=== PATIENT | male | born 1975 | race Caucasian/White ===

== ENCOUNTER 2016-10-08 11:12 | Emergency (ER) | payer OTHER ==
[2016-10-08 11:25] VITALS: BP 134/92; PULSE 72; RESP 16; TEMP 98.4; O2SAT 97
--- NOTE | 2016-10-08 12:07 | EDPHY ---
H & P Stated Complaint: fall 5 ft off ladder at 0500/hit head l shoulder and both hands/denies loc/ Time Seen by Provider: 10/08/16 12:08 HPI/ROS: At 12:10 p.m. as I was entering his room the patient was exiting visibly upset stating that he was leaving, did not want to wait any longer. I have informed him that I was going to evaluate him at this time and offered and recommended to perform an evaluation however he insisted on leaving and therefore left without being seen. He was informed that he is more than welcome to return to the ER at any point for re-evaluation. - Personal History Current Tetanus/Diphtheria Vaccine: Yes - Medical/Surgical History Hx Asthma: No Hx Chronic Respiratory Disease: No Hx Diabetes: No Hx Cardiac Disease: No Hx Renal Disease: No Hx Cirrhosis: No Hx Alcoholism: No Hx HIV/AIDS: No Hx Splenectomy or Spleen Trauma: No Other PMH: denies - Social History Smoking Status: Former smoker Constitutional: Initial Vital Signs Temperature (C) 36.9 C 10/08/16 11:21 Heart Rate 72 10/08/16 11:21 Respiratory Rate 16 10/08/16 11:21 Blood Pressure 134/92 H 10/08/16 11:21 O2 Sat (%) 97 10/08/16 11:21 O2 Delivery Mode Room Air Allergies/Adverse Reactions: No Known Allergies Allergy (Verified 10/08/16 11:21) Home Medications: Medication Instructions Recorded NK [No Known Home Meds] 10/08/16 Departure - Departure Disposition: Left Without Being Seen
== END 2016-10-08 12:11 | disposition left against medical advice (07) ==
DX: Z53.21 Procedure and treatment not carried out due to patient leaving prior to being seen by health care provider (principal)

== ENCOUNTER 2016-10-08 12:25 | Emergency (ER) | payer OTHER ==
[2016-10-08 12:29] VITALS: BP 138/83; PULSE 70; RESP 18; TEMP 98.2; O2SAT 97
--- NOTE | 2016-10-08 12:39 | EDPHY ---
H & P Time Seen by Provider: 10/08/16 12:35 HPI/ROS: CHIEF COMPLAINT: Head injury HISTORY OF PRESENT ILLNESS: The patient is a 40 year old male presenting with head injury after falling from a ladder. The ladder folded up while the patient was standing on it, causing the patient to fall about 6 feet. He landed head first with his hands in front onto the concrete. He complains of moderate headache and some dizziness. He reports no neck pain. The patient also complains of pain in his left pinky finger and right wrist and hand pain from trying to catch himself. He denies any numbness in his extremities. REVIEW OF SYSTEMS: Aside from elements discussed in the HPI, a comprehensive 10-point review of systems was reviewed and is negative. Past Medical/Surgical History: Denies. Social History: Single. Lives in [place]. Smoking Status: Former smoker Physical Exam: General Appearance: Alert, no distress Head: 1cm superficial laceration above left eyebrow with surrounding ecchymosis Eyes: No conjunctival erythema, PERRLA, EOMI ENT, Mouth: No hemotympanum, no oral trauma, no bony tenderness Neck: Non-tender, full range of motion without pain Respiratory: No chest wall tenderness, lungs clear bilaterally Cardiovascular: Regular rate and rhythm Abdomen: Abdomen is soft and non tender Skin: No lacerations, no abrasions Back: No midline T/L/S tenderness Extremities: Snuff box tenderness right wrist, Tenderness of 4th digit over PIP on right hand. Tenderness over 5th digit at the DIP joint on left hand. Neurological: A&Ox3, normal motor function, normal sensory exam, cranial nerves intact Psychiatric: Mood and affect normal Constitutional: Initial Vital Signs Temperature (C) 36.8 C 10/08/16 12:26 Heart Rate 70 10/08/16 12:26 Respiratory Rate 18 10/08/16 12:26 Blood Pressure 138/83 H 10/08/16 12:26 O2 Sat (%) 97 10/08/16 12:26 O2 Delivery Mode Room Air Allergies/Adverse Reactions: No Known Allergies Allergy (Verified 10/08/16 12:25) Home Medications: Medication Instructions Recorded NK [No Known Home Meds] 10/08/16 Medical Decision Making - Diagnostics Imaging: Study: CT of the head. Indication: Trauma. Results: Negative. The study was read by the radiologist, Dr. Cárdenas. I viewed the images myself on the PACS system. Study: X-ray of the hand was obtained. Results: No fracture. Images were interpreted by me. I viewed the images myself on the PACS system. Study: X-ray of the wrist was obtained. Results: No fracture. Images were interpreted by me. I viewed the images myself on the PACS system. Procedures: orthoglass thumb spica splint placed. Neurovasc intact after application. ED Course/Re-evaluation: Significant CHI with moderate FERRARO and BUE pain; Plan for CT head and x-ray of right wrist and hand. The patient declines x-ray of left hand. I applied Dermabond to the laceration. The patient was placed in a velcro wrist splint. CT results d/w pt. Neuro exam remains intact. c/w concussion, no ICH. Precautions given. Differential Diagnosis: Differential diagnosis includes though it is not limited to scaphoid fracture, intracranial hemorrhage, pneumothorax, hemothorax, intra-abdominal hemorrhage. Departure - Departure Disposition: Home, Routine, Self-Care Clinical Impression: Concussion Qualifiers: Encounter type: initial encounter Loss of consciousness presence/duration: without LOC Qualifier Code: (S06.0X0A) Concussion without loss of consciousness , initial encounter Facial laceration Qualifiers: Encounter type: initial encounter Qualifier Code: (S01.81XA) Laceration without foreign body of other part of head, initial encounter Condition: Good Instructions: Skin Adhesive Care (ED), Scaphoid Fracture (ED), Concussion (DC) Additional Instructions: Followup with an orthopedic doctor or your primary care physician in 10-14 days for repeat x-ray of you wrist for possible scaphoid fracture. Wear splint until you are reevaluated by a physician. Referrals: Cherelle Ruiz PA [Primary Care Provider] - As per Instructions Melchor Guadarrama MD [Medical Doctor] - As per Instructions (Orthopedic doctor) Report Scribed for: Geni Solis Report Scribed by: Alejadnrina Grant Date of Report: 10/08/16 Time of Report: 12:39 Physician Review and Approval Statement: 10/08/16 12:39 Portions of this note were transcribed by a medical director occupational health. I personally performed the history, physical exam, and medical decision-making; and confirmed the accuracy of the information in the transcribed note.
[2016-10-08] MEDS ORDERED: SKIN ADHESIVE (DERMABOND) 1 EACH TP ONE (13:03)
--- NOTE | 2016-10-08 13:46 | CT ---
CT Scan of the Head (Without Contrast) Clinical Indications: 40-year-old male presenting to the ED after a fall from a ladder, hitting his left forehead, with no loss of consciousness or prior head injury. Rule out acute intracranial abnorm ality. Technique: Axial CT images were acquired from the foramen magnum through the skull vertex, without i ntravenous contrast. Soft tissue, subdural, and bone windows were reviewed on the computer workstati on. Images were reformatted at 5.00 and 1.25 mm increments, and are reformatted in sagittal and moisés nal planes. DFOV is 25.0 cm. Dose reduction techniques were utilized. Comparison Study: None. Findings: There is a left supraorbital-left frontal scalp hematoma, There are no intracranial mass le sions identified, and there is no evidence of an acute or subacute intracranial hemorrhage, or an acu te infarct. The ventricles and subarachnoid spaces are normal in size for this age group. The bone windows reveal no sign of a fracture. The mastoid air cells are free of fluid. There is trace mucosa l thickening of the ethmoids and of the right maxillary sinus. There is no osseous erosion or air-flu id level. There is no nasal septal deviation. The craniocervical junction, calcified pineal gland, an d the orbits are unremarkable. There is a partially empty sella turcica variant. If there is continui ng clinical concern regarding the patient's symptoms, MR imaging could be considered, if otherwise no t contraindicated. Impression: There is a left frontal-left supraorbital scalp hematoma, but no underlying orbital rim fracture, or acute intracranial abnormality. Results were discussed with Dr. Erin Solis. A test result has been communicated to a licensed care provider and documented in [employer], 1:41:56 PM , 10/08/2016, [employer] Message ID [id number].
--- NOTE | 2016-10-08 14:19 | DX ---
Right Wrist Series, 4 views dated October 08, 2016 Indication: Pain. Fell 6 feet. Comparison: Left wrist series dated October 23, 2009 Findings: The bones are anatomically aligned. No fracture or joint space abnormality. Specifically , the navicular bone and scapholunate interval are normal. Impression: Negative. No acute fracture.
--- NOTE | 2016-10-08 14:35 | DX ---
Right Hand - 3 Views dated October 08, 2016 Indication: Pain. Fell 6 feet. Findings: The normally mineralized bones are anatomically aligned. No fracture, joint space abnorm ality, or underlying bony lesion. The soft tissue planes are normal. Impression: Normal. No acute fracture.
== END 2016-10-08 14:33 | disposition home or self-care (01) ==
DX: S06.0X0A Concussion without loss of consciousness, initial encounter (principal); S01.81XA Laceration without foreign body of other part of head, initial encounter; Z87.891 Personal history of nicotine dependence; W11.XXXA Fall on and from ladder, initial encounter